=== PATIENT | female | born 1985 | race Caucasian/White ===

== ENCOUNTER 2019-05-10 10:29 | Emergency (ER) | payer SELFPAY ==
[~2019-05-10] VITALS: Ht 170.2 cm; Wt 81.8 kg
[2019-05-10 11:34] VITALS: BP 191/117
[2019-05-10] MEDS: NAPROXEN 500 MG TABLET PO ONE (11:55)
[2019-05-10] MEDS: HYDROcodone/APAP 7.5/325MG 1 TAB TABLET PO ONE (11:55)
--- NOTE | 2019-05-10 12:12 | RAD ---
RIGHT SHOULDER , 3 VIEWS Clinical Indication: Right shoulder pain after throwing wood yesterday and feeling a pop. Comparison: None. Findings: There is no acute fracture or dislocation. The acromioclavicular and glenohumeral joints are intact. The visualized lung is clear. There is no evidence of a displaced rib fracture. There is no soft tissue abnormality. IMPRESSION: No acute fracture or dislocation. Electronically signed by: Carlos Dumont MD (05/10/2019 12:09 PM) [id number]
--- NOTE | 2019-05-10 12:20 | PHYS DOC ---
Past Medical History Past Medical History: No Pertinent History Past Surgical History: No Surgical History Smoking Status: Current Every Day Smoker Additional Information: 0.5 PPD Alcohol Use: None Adult General Chief Complaint Chief Complaint: DEV [facility] HPI Patient is a 34 year old female who presents to the emergency department with complaints of right shoulder pain. Patient states that she was lifting and throwing heavy wood yesterday when she felt something in her right shoulder pop. She states that she had some tingling in her arm after feeling that sensation. She currently denies any numbness or tingling of the right arm. Patient states she is unable to lift her arm anteriorly or laterally. She denies any pain in her elbow wrist or hand. She currently rates her pain a 10 out of 10 on the pain scale, patient states that she took 2 Tylenol about 2 hours ago with no relief of her symptoms. Review of Systems Review of Systems Complete ROS is negative unless otherwise noted in HPI. Current Medications Current Medications Current Medications Medications (Trade) Dose Ordered Sig/Kala Start Time Stop Time Status Last Admin Dose Admin Acetaminophen/ Hydrocodone Bitart (Lortab 7.5/325) 1 tab 1X ONCE 05/10/19 11:45 05/10/19 11:46 DC 05/10/19 11:55 1 TAB Naproxen (Naprosyn) 500 mg 1X ONCE 05/10/19 11:45 05/10/19 11:46 DC 05/10/19 11:55 500 MG Allergies Allergies Allergies Coded Allergies Type Severity Reaction Last Updated Verified No Known Drug Allergies 05/10/19 No Physical Exam Physical Exam See Above Constitutional: Well developed, well nourished, no acute distress, non-toxic appearance. [] HENT: Normocephalic, atraumatic, bilateral external ears normal, nose normal. [] Eyes: PERRLA, EOMI, conjunctiva normal, no discharge. [] Neck: Normal range of motion, no stridor. [] Cardiovascular:Heart rate regular rhythm Lungs & Thorax: Respirations even and unlabored, no retractions, no respiratory distress Extremities: Right shoulder: Diffuse tenderness, no obvious deformity, no crepitus, sensation intact, range of motion limited due to pain, no cyanosis, no clubbing, no edema. [] Neurologic: Alert and oriented X 3, no focal deficits noted. [] Psychologic: Affect normal, judgement normal, mood normal. [] Current Patient Data Vital Signs Vital Signs Date Time Temp Pulse Resp B/P (MAP) Pulse Ox O2 Delivery O2 Flow Rate FiO2 05/10/19 11:55 20 05/10/19 11:34 97.7 118 191/117 (141) 96 Room Air 97.7 EKG EKG [] Radiology/Procedures Radiology/Procedures PROCEDURE: SHOULDER 2+V RIGHT RIGHT SHOULDER , 3 VIEWS Clinical Indication: Right shoulder pain after throwing wood yesterday and feeling a pop. Comparison: None. Findings: There is no acute fracture or dislocation. The acromioclavicular and glenohumeral joints are intact. The visualized lung is clear. There is no evidence of a displaced rib fracture. There is no soft tissue abnormality. IMPRESSION: No acute fracture or dislocation.[] Course & Med Decision Making Course & Med Decision Making Pertinent Labs and Imaging studies reviewed. (See chart for details) 34-year-old female who presents the emergency room with complaints of right shoulder pain after feeling a pop in her shoulder yesterday. Patient was given 7.5/325 mg of hydrocodone in the emergency department and was placed in a sling. X-ray did not reveal any acute findings or fracture. Patient reported decreased pain after these medications and after right arm was placed in sling. Her blood pressure improved to 165/106, heart rate was 80, respirations were 18 when I advised the patient of radiology results. Patient reported feeling better, will follow up with Dr. Samaniego if pain persists, patient advised to return to the emergency room if symptoms worsen. Patient verbalized an understanding of home care, medications, follow-up, and return to ED instructions and was in agreement with the plan of care. [] Dragon Disclaimer Dragon Disclaimer This electronic medical record was generated, in whole or in part, using a voice recognition dictation system. Departure Departure Impression: Primary Impression: Acute pain of right shoulder Disposition: 01 HOME, SELF-CARE Condition: STABLE Referrals: NO PCP (PCP) Patient Instructions: Shoulder Pain, [id number] Additional Instructions: Fill prescription(s) and use as directed. Recommend application of ice, elevation, and rest of affected extremity. Wear the sling that was placed as needed for comfort, recommend range of motion as instructed in the ER. Follow up with Dr. Samaniego if symptoms persist. Return to the ER if your symptoms worsen. Scripts Naproxen (NAPROXEN) 500 Mg Tablet 1 TAB PO BID PRN for PAIN for 10 Days, #20 TAB 0 Refills Prov: ESAU CUELLAR APRN 05/10/19 ESAU CUELLAR APRN May 10, 2019 12:20
[2019-05-10] MEDS ORDERED: NAPR-514 PO (12:32)
== END 2019-05-10 13:00 | disposition home or self-care (01) ==
LOC: ER 10:29
DX: M25.511 Pain in right shoulder (principal); F17.200 Nicotine dependence, unspecified, uncomplicated
CPT/HCPCS: 73030; 99283